=== PATIENT | female | born 1945 | race Caucasian/White ===

== ENCOUNTER 2018-04-13 07:00 | Day surgery (SDC) | payer OTHER ==
[2018-04-12 12:05] VITALS: BMI 21.7
[2018-04-13 09:48] VITALS: TEMP 97.6
[2018-04-13 10:48] LABS: BASO % 0.5 % (0-2.0); EOS % 2.5 % (0-4.5); HEMATOCRIT 36.9 % (32.4-45.2); HEMOGLOBIN 12.5 GM/dL (10.7-15.3); LYMPH % 26.7 % (8-40); MCH 29.9 pg (25.7-33.7); MEAN CELL VOLUME 88.1 fl (80-96); MEAN PLT VOLUME 6.5 fl (7.5-11.1); MONO % 10.4 % (3.8-10.2); NEUT % 59.9 % (42.8-82.8); PLATELET COUNT 325 K/MM3 (134-434); RBC 4.19 M/mm3 (3.60-5.2); RDW 14.1 % (11.6-15.6); WHITE BLOOD COUNT 5.9 K/mm3 (4.0-10.0)
[2018-04-13 11:06] LABS: INR 1.05 (0.83-1.09); PROTHROMBIN TIME (PATIENT) 11.9 SEC (9.7-13.0)
[2018-04-13 11:07] VITALS: BP 103/74; PULSE 66
[2018-04-13 11:54] LABS: ALBUMIN 3.9 g/dl (3.4-5.0); ANION GAP 11 MMOL/L (8-16); BLOOD UREA NITROGEN 9 mg/dL (7-18); CALCIUM 8.8 mg/dL (8.5-10.1); CHLORIDE 107 mmol/L (98-107); CO2 25 mmol/L (21-32); CREATININE 0.5 mg/dL (0.55-1.02); GLUCOSE,RANDOM 94 mg/dL (74-106); POTASSIUM 3.7 mmol/L (3.5-5.1); SGOT/AST 20 U/L (15-37); SGPT/ALT 27 U/L (12-78); SODIUM 143 mmol/L (136-145)
[2018-04-13 11:57] LABS: ALK PHOS 45 U/L (45-117); BILIRUBIN,TOTAL 0.3 mg/dL (0.2-1.0); TOT PROT 7.1 g/dl (6.4-8.2)
--- NOTE | 2018-04-16 18:53 | PATH ---
Surgical Pathology Report Patient Name: GERRY GRIFFITH [facility]. Rec. #: [id number] /Age/Gender: 1945 (Age: 72) / F Account: [id number] Location: U-ENDOSCOPY Taken: 04/13/2018 Received: 04/13/2018 Reported: 04/16/2018 Physicians: Kristine Streeter M.D. Specimen(s) Received A: BX TRANSVERSE COLON POLYP B: BX HEPATIC FLEXURE POLYP C: RECTAL POLYP Clinical History Family history of colon cancer, screening Postoperative diagnosis: Colon polyp Final Diagnosis A. TRANSVERSE COLON POLYP, POLYPECTOMY: TUBAL ADENOMA. B. COLON, HEPATIC FLEXURE POLYP, POLYPECTOMY: HYPERPLASTIC POLYP. C. RECTAL POLYP, POLYPECTOMY: HYPERPLASTIC POLYP. Electronically Signed Jesse Chavira M.D. Gross Description A. Received in formalin, labeled "biopsy polyp transverse colon" are 3 light, irregular portions of soft tissue averaging 0.4 . in greatest dimension. The specimens are submitted in toto in one cassette. B. Received in formalin, labeled "biopsy polyp hepatic flexure" are 2 light, irregular portions of soft tissue measuring 0.2 and 0.5 cm. in greatest dimension. The specimens are submitted in toto in one cassette. C. Received in formalin, labeled "biopsy polyp rectum" are 3 light, irregular portions of soft tissue ranging from 0.2-0.3 cm. in greatest dimension. The specimens are submitted in toto in one cassette. 04/13/2018 saudi04/13/2018
== END 2018-04-13 10:52 | disposition home or self-care (01) ==
LOC: JASU-ENDO 07:00
PROVIDERS: ATTEND Internal Medicine Gastroenterology
PROC: 0DBP8ZX Excision of Rectum, Via Natural or Artificial Opening Endoscopic, Diagnostic (ICD-10-PCS; 2018-04-13)
PROC: 3E0H8GC Introduction of Other Therapeutic Substance into Lower GI, Via Natural or Artificial Opening Endoscopic (ICD-10-PCS; 2018-04-13)
PROC: 0DBL8ZX Excision of Transverse Colon, Via Natural or Artificial Opening Endoscopic, Diagnostic (ICD-10-PCS; principal; 2018-04-13 09:00)
DX: Z12.11 Encounter for screening for malignant neoplasm of colon (principal); Z80.0 Family history of malignant neoplasm of digestive organs; D12.3 Benign neoplasm of transverse colon; K62.1 Rectal polyp; K64.4 Residual hemorrhoidal skin tags
CPT/HCPCS: 36415; 80053; 82378; 82728; 85025; 85610; 86140; 88305-TC

== ENCOUNTER 2018-05-30 11:58 | Day surgery (SDC) | payer OTHER ==
[2018-05-28 09:56] VITALS: BMI 19.8
[2018-05-30 13:08] VITALS: BP 123/68; PULSE 79; TEMP 98
[2018-05-30] MEDS ORDERED: ALVIMOPAN 12 MG CAP PO ONE (13:19)
[2018-05-30] MEDS ORDERED: ALVIMOPAN 12 MG CAP PO SCH (14:00)
== END 2018-05-30 15:00 | disposition home or self-care (01) ==
LOC: JASU-SURG 11:58 → JSAMEDAYSX 11:58 → UNDOADMIN 11:58 → EDSTATUS 14:30 → UNDODISIN 15:00 → JASU-SURG 15:00
PROVIDERS: ATTEND Surgery
PROC: 3E013GC Introduction of Other Therapeutic Substance into Subcutaneous Tissue, Percutaneous Approach (ICD-10-PCS; principal; 2018-05-30)
DX: Z53.8 Procedure and treatment not carried out for other reasons (principal)
CPT/HCPCS: 86850; 86900; 86901

== ENCOUNTER 2019-01-06 16:09 | Emergency (ER) | payer OTHER ==
[2019-01-06 16:20] VITALS: BP 137/85; PULSE 77; TEMP 98; BMI 19.2
[2019-01-06] MEDS ORDERED: ACETAMINOPHEN 325 MG TABLET (FP) PO ONE (16:54)
--- NOTE | 2019-01-06 16:55 | PDOC ---
History of Present Illness - General Chief Complaint: Laceration Stated Complaint: FALL / LAC HEAD Time Seen by Provider: 01/06/19 16:22 History Source: Patient Exam Limitations: No Limitations - History of Present Illness Initial Comments: 01/06/19 16:50 73F with PMH of HTN not on AC who presents to the ER after sustaining a laceration after falling. 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 She denies any LOC or other trauma. She denies any CP, SOB, palpitations, lightheadedness, nausea, vomiting, diaphoresis, numbness, tingling , or weakness before, during, or after the fall. The patient denies any acute complaints other than a headache from the fall. She denies any neck pain. She denies melena, hematochezia, or hematuria. Past History - Past Medical History Allergies/Adverse Reactions: Allergies Allergy/AdvReac Type Severity Reaction Status Date / Time No Known Allergies Allergy Verified 01/06/19 16:20 Home Medications: Ambulatory Orders Alendronate Sodium [Binosto] 70 mg PO WEEKLY 04/12/18 Amlodipine Besylate [Norvasc -] 10 mg PO DAILY 04/12/18 Ascorbic Acid [Vitamin C] 500 mg PO DAILY 04/12/18 Benazepril HCl 10 mg PO DAILY 04/12/18 Biotin 1 mg PO DAILY 04/12/18 Calcium Carb/Vit D3/Minerals [Calcium 600+D Plus Minerals Tb] 1 each PO DAILY Glucosamine Sulfate Dipot Chlr [Glucosamine] 1,000 mg PO DAILY 04/12/18 Vitamin E 100 unit PO DAILY 04/12/18 Anemia: No Asthma: No Cancer: No Cardiac Disorders: No CVA: No COPD: No CHF: No Dementia: No Diabetes: No GI Disorders: Yes (DIVERTICULOSIS) Disorders: No HTN: Yes Hypercholesterolemia: No Liver Disease: No Seizures: No Thyroid Disease: No - Surgical History Abdominal Surgery: No Appendectomy: No Cardiac Surgery: No Cholecystectomy: No Lung Surgery: No Neurologic Surgery: No Orthopedic Surgery: (right arm surgery due to polio) - Suicide/Smoking/Psychosocial Hx Smoking History: Never smoked Have you smoked in the past 12 months: No If you are a former smoker, when did you quit?: 1989 Hx Alcohol Use: Yes (SOCIALLY) Drug/Substance Use Hx: No Substance Use Type: None Hx Substance Use Treatment: No Review of Systems - Review of Systems Able to Perform ROS?: Yes Comments:: 01/06/19 16:55 GENERAL/CONSTITUTIONAL: + for fall and head laceration. No fever or chills. No weakness. HEAD, EYES, EARS, NOSE AND THROAT: No change in vision. No ear pain or discharge. No sore throat. CARDIOVASCULAR: No chest pain, palpitations, or lightheadedness. RESPIRATORY: No cough, wheezing, shortness of breath, or hemoptysis. GASTROINTESTINAL: No nausea, vomiting, diarrhea, constipation, or abdominal pain. GENITOURINARY: No dysuria, frequency, hematuria, or change in urination. MUSCULOSKELETAL: No joint or muscle swelling or pain. No neck or back pain. SKIN: No rash or lesions. NEUROLOGIC: No headache, numbness, tingling, focal weakness, loss of consciousness, or change in strength/sensation. Is the patient limited German proficient: No *Physical Exam - Vital Signs Last Vital Signs Temp Pulse Resp BP Pulse Ox 98 F 77 18 137/85 97 01/06/19 16:16 01/06/19 16:16 01/06/19 16:16 01/06/19 16:16 01/06/19 16:16 - Physical Exam Comments: 01/06/19 16:55 GENERAL: Well developed, well nourished. Awake and alert. No acute distress. HEENT: 2cm linear laceration on L frontal scalp. Hearing grossly normal. Moist mucous membranes. PERRLA, EOMI. No conjunctival pallor. Sclera are non-icteric. NECK: Supple. Full ROM. No JVD. No midline tenderness. CARDIOVASCULAR: Regular rate and rhythm. No murmurs, rubs, or gallops. PULMONARY: No evidence of respiratory distress. Lungs clear to auscultation bilaterally. No wheezing, rales or rhonchi. ABDOMINAL: Soft. Non-tender. Non-distended. No rebound or guarding. GENITOURINARY: No CVA tenderness bilaterally. MUSCULOSKELETAL: Normal range of motion at all joints. No bony deformities or tenderness. EXTREMITIES: No cyanosis. No clubbing. No edema. No calf tenderness or swelling. SKIN: Warm and dry. Normal capillary refill. No rashes. No jaundice. NEUROLOGICAL: Alert, awake, appropriate. Cranial nerves 2-12 grossly intact. Normal speech. Gait is normal without ataxia. PSYCHIATRIC: Cooperative. Good eye contact. Appropriate mood and affect. Procedures - Laceration/Wound Repair Left Anterior Head Wound Length: to 2.5 cm Wound Explored: clean Wound's Depth, Shape: superficial, linear Irrigated w/ Saline: Yes Betadine Prep: No Anesthesia: 1% Lidocaine Amount of Anesthetic (ccs): 2 Wound Debrided: minimal Wound Repaired With: [place] (3) Layer Closure: No Sterile Dressing Applied: Yes Splint Applied: No Sling Applied: No Heart Score/ECG Review - History History: Slightly suspicious - Electrocardiogram EKG: Normal - Age Age: >/= 65 - Risk Factors Risk Factors Heart Score: Yes Hx Hypertension Based on the list above the patient has:: 1-2 risk factors #1 ECG reviewed & interpreted by me at: 17:07 General ECG Interpretation: Sinus Rhythm, Normal Rate Compared to previous ECG there are: Previous ECG unavail 01/06/19 17:07 NSR vent rate 75 MS 140 QRS 150 QTc 531 No STD or JAKY LBBB noted; unchanged per stress test on 04/07 No signs of acute ischemia ED Treatment Course - LABORATORY CBC & Chemistry Diagram: 01/06/19 16:55 01/06/19 16:55 - RADIOLOGY Radiology Studies Ordered: Category Date Time Status CERVICAL SPINE CT W/O CONTR [CT] Stat CT Scan 01/06/19 16:[address] WITHOUT CONTRAST [CT] Stat CT Scan 01/06/19 16:30 Ordered Medical Decision Making - Medical Decision Making 01/06/19 16:56 73F with a PMH of HTN who presents after sustaining a laceration on her head after falling. The patient is unsure if the fall was mechanical but denies LOC. Will obtain bloodwork including troponin, EKG, and head and c-spine CT. Pt is otherwise well appearing. 01/06/19 18:37 3 rosalind placed in sterile fashion. Pt tolerated procedure well. Pending CT. First troponin negative. 01/06/19 19:33 CTH and c-spine negative. Pending repeat troponin. 01/06/19 20:48 Repeat troponin negative. Pending repeat CKMB. 01/06/19 21:30 CKMB stable w/ normal CK index. Will d/c with PCP f/u. *DC/Admit/Observation/Transfer Diagnosis at time of Disposition: Fall Qualifiers: Encounter type: initial encounter Qualified Code(s): W19.XXXA - Unspecified fall, initial encounter - Discharge Dispostion Disposition: HOME Condition at time of disposition: Stable Decision to Admit order: No - Referrals Referrals: Mark Harper MD [Primary Care Provider] - Kalpesh Brito MD [Staff Physician] - - Patient Instructions Printed Discharge Instructions: DI for Laceration Repair Additional Instructions: Your ER visit is not complete until your follow up with your primary care physician. Please follow up with your primary care physician in 1-2 days. Please return to the ER if you have any signs or symptoms of chest pain, shortness of breath, uncontrollable fever, chills, nausea, vomiting, numbness, tingling, or weakness in any part of your body, changes in vision, or slurred speech. Please take your medications as prescribed. Please return to the ER if symptoms persist, worsen, or new symptoms arise. - Post Discharge Activity
[2019-01-06 17:09] LABS: BASO % 0.4 % (0-2.0); EOS % 2.4 % (0-4.5); HEMATOCRIT 37.6 % (32.4-45.2); HEMOGLOBIN 12.3 GM/dL (10.7-15.3); LYMPH % 35.8 % (8-40); MCH 29.4 pg (25.7-33.7); MCHC 32.7 g/dl (32.0-36.0); MEAN CELL VOLUME 89.8 fl (80-96); MEAN PLT VOLUME 6.3 fl (7.5-11.1); MONO % 10.1 % (3.8-10.2); NEUT % 51.3 % (42.8-82.8); PLATELET COUNT 308 K/MM3 (134-434); RBC 4.19 M/mm3 (3.60-5.2); RDW 14.7 % (11.6-15.6); WHITE BLOOD COUNT 6.7 K/mm3 (4.0-10.0)
[2019-01-06 17:21] LABS: INR 0.95 (0.83-1.09); PROTHROMBIN TIME (PATIENT) 11.2 SEC (9.7-13.0)
[2019-01-06 17:35] LABS: ALBUMIN 4.2 g/dl (3.4-5.0); ALK PHOS 46 U/L (45-117); ANION GAP 10 MMOL/L (8-16); BILIRUBIN,TOTAL 0.2 mg/dL (0.2-1); BLOOD UREA NITROGEN 13 mg/dL (7-18); CALCIUM 8.7 mg/dL (8.5-10.1); CHLORIDE 107 mmol/L (98-107); CO2 23 mmol/L (21-32); CREATININE 0.6 mg/dL (0.55-1.3); GLUCOSE,RANDOM 98 mg/dL (74-106); POTASSIUM 3.6 mmol/L (3.5-5.1); SGOT/AST 29 U/L (15-37); SGPT/ALT 33 U/L (13-61); SODIUM 141 mmol/L (136-145); TOT PROT 7.3 g/dl (6.4-8.2)
[2019-01-06] MEDS ORDERED: ACETAMINOPHEN 325 MG TABLET (FP) ONE (17:58)
[2019-01-06] MEDS ORDERED: DIPHTH,PERTUSS(ACELL),TET 0.5 ML DISP.SYRIN IM ONE ×2 (18:34→18:43)
--- NOTE | 2019-01-07 01:32 | PDOC ---
Documentation entered by Glen Saha SCRIBE, acting as scribe for Vijaya Serna MD. Vijaya Serna MD: This documentation has been prepared by the tomásibeYifan Daniel, SCRIBE, under my direction and personally reviewed by me in its entirety. I confirm that the documentation accurately reflects all work, treatment, procedures, and medical decision making performed by me. Attending Attestation - Resident Resident Name: Luis Jaime - ED Attending Attestation I have performed the following: I have examined & evaluated the patient, The case was reviewed & discussed with the resident, I agree w/resident's findings & plan, Exceptions are as noted - HPI HPI: 01/06/19 16:40 The patient is a 73 year old female with a past medical history of HTN here today for evaluation s/p fall. 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 She denies loss of consciousness and remembers the while incident. Patient denies headache, lightheadedness. Denies fever, chills. Denies chest pain, shortness of breath. Denies nausea, vomiting, diarrhea, abdominal pain. 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 trop,labs,ct scan head and cervical spine ordered 01/06/19 19:02 CAT scan of the brain without contrast shows no evidence of depressed skull fracture or intracranial bleed 01/06/19 20:06 CT scan of c spine: no acute fracture or subluxation or dislocation -degenerative disc disease 01/07/19 01:32 imp closed head trauma,scalp laceration repair discharged home
--- NOTE | 2019-01-07 11:04 | EKG ---
Test Reason : Blood Pressure : / mmHG Vent. Rate : 073 BPM Atrial Rate : 073 BPM P-R Int : 140 ms QRS Dur : 150 ms QT Int : 482 ms P-R-T Axes : 078 020 063 degrees QTc Int : 531 ms NORMAL SINUS RHYTHM LEFT BUNDLE BRANCH BLOCK ABNORMAL ECG NO PREVIOUS ECGS AVAILABLE Confirmed by FRENCH TORO, JEROME ([id number]) on 01/07/2019 11:03:36 AM Referred By: Confirmed By:JEROME BRASWELL MD
== END 2019-01-06 21:18 | disposition home or self-care (01) ==
LOC: JER 16:09
PROC: 0HQ0XZZ Repair Scalp Skin, External Approach (ICD-10-PCS; principal; 2019-01-06)
DX: S01.01XA Laceration without foreign body of scalp, initial encounter (principal); W22.8XXA Striking against or struck by other objects, initial encounter; Y93.89 Activity, other specified; Y92.232 Corridor of hospital as the place of occurrence of the external cause; Y99.2 Volunteer activity
CPT/HCPCS: 36415; 70450-TC; 72125-TC; 80053; 82550; 82553; 84484; 85025; 85610; 90715; 93005; 93010; 99282-25

== ENCOUNTER 2019-01-14 15:34 | Emergency (ER) | payer OTHER | END 2019-01-14 15:59 | disposition home or self-care (01) | LOC: JER 15:34 ==